=== PATIENT | male | born 1930 | race Caucasian/White ===

== ENCOUNTER → 2016-08-25 | Outpatient (CLI) | payer MEDICARE, BC ==
--- NOTE | 2016-08-25 22:01 | XR ---
EXAMINATION TYPE: XR chest 2V DATE OF EXAM: 08/25/2016 5:27 PM COMPARISON: NONE HISTORY: Cough TECHNIQUE: Frontal and lateral views of the chest are obtained. FINDINGS: On the frontal radiograph is a 3.3 cm rounded opacity superimposed over the right hemidiap hragm. This has a smooth margin superiorly, medially, and inferiorly - but its lateral margin is not well seen - suggesting a cutaneous lesion. The lateral view shows a rounded opacity superimposed over the spinal canal. Otherwise, the lung parenchyma appears clear and well expanded bilaterally. The pleural spaces are negative. Sternal sutures and mediastinal clips are noted. Cardiac size is top normal. There is ectasia of the thoracic aorta. Bones and soft tissues are remarkable for only chronic bilateral rotator cuff ruptures, with appositi on of the acromion and the humeral heads bilaterally. IMPRESSION: RADIOGRAPHIC FINDINGS FOR WHICH CT CHEST WITH CONTRAST IS RECOMMENDED TO CHARACTERIZE. .
== END ==
LOC: RADXRMAIN 17:10
PROVIDERS: ATTEND Family Medicine
DX: R05 Cough (principal)
CPT/HCPCS: 71020

== ENCOUNTER → 2016-08-28 | Outpatient (CLI) | payer MEDICARE, BC ==
[2016-08-28 17:26] LABS: Blood Urea Nitrogen 22 mg/dL (9-20); Non-African American GFR(MDRD) >60 (>60 ml/min/1.73 sqM)
== END | disposition home or self-care (01) ==
LOC: LABWHC1 16:53
PROVIDERS: ATTEND Nurse Practitioner
DX: R93.8 Abnormal findings on diagnostic imaging of other specified body structures (principal)
CPT/HCPCS: 36415; 82565; 84520

== ENCOUNTER → 2016-08-31 | Outpatient (CLI) | payer MEDICARE, BC ==
--- NOTE | 2016-08-31 19:58 | CT ---
EXAMINATION TYPE: CT chest w con DATE OF EXAM: 08/31/2016 6:39 PM COMPARISON: NONE HISTORY: Cough x couple months. CT DLP: 488.40 mGycm Automated exposure control for dose reduction was used. CONTRAST: CT scan of the chest is performed with IV Contrast, patient injected with 100 mL of Omnipaque 300. FINDINGS: There is mild diffuse pulmonary emphysema. There is a rounded 3 cm masslike density in the subpleural posterior right lower lobe. There is moderate adenopathy at the right pulmonary hilum with multiple lymph nodes that measure up to 2.5 cm. There is also significant subcarinal adenopathy. This measures almost 4 cm. There is no evidence of aortic aneurysm or dissection. Thoracic aorta is atheromatous. There is no pe ricardial effusion. There is no pleural effusion. There is no adrenal mass. 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 I see no focal bone destruction. IMPRESSION: There is a right lower lobe mass with right bronchial adenopathy and subcarinal adenopat hy that is suspicious for tumor. Follow-up is recommended. Mild pulmonary emphysema.
== END ==
LOC: RADCTMAIN 17:35
PROVIDERS: ATTEND Family Medicine
DX: J43.9 Emphysema, unspecified (principal); R91.8 Other nonspecific abnormal finding of lung field
CPT/HCPCS: 71260; Q9967